=== PATIENT | female | born 1940 | race Caucasian/White ===

== ENCOUNTER 2018-05-31 16:51 | Inpatient (IN) | payer OTHER ==
[~2018-05-31] VITALS: Ht 139.7 cm; Wt 68.3 kg
[2018-05-31] MEDS ORDERED: ONDANSETRON 4 MG INJ IV STA (17:42)
[2018-05-31] MEDS ORDERED: morphine 4 MG/ML VIAL IV STA ×2 (17:42→19:50)
[2018-05-31] MEDS ORDERED: LOSA100T15 PO (18:16)
[2018-05-31] MEDS ORDERED: LEVO112T57 PO (18:17)
[2018-05-31] MEDS ORDERED: AMLO2.5T78 PO (18:17)
[2018-05-31] MEDS ORDERED: LOVA20TA PO (18:17)
[2018-05-31] MEDS ORDERED: ASPI-817 PO (18:18)
[2018-05-31] MEDS ORDERED: BIOT1TAB12 PO (18:20)
[2018-05-31] MEDS ORDERED: CYAN-23 PO (18:21)
[2018-05-31] MEDS ORDERED: ASC500 PO (18:21)
[2018-05-31] MEDS ORDERED: CHOL500010 PO (18:22)
[2018-05-31] MEDS ORDERED: METO-335 PO (18:25)
[2018-05-31] MEDS ORDERED: ISOS30TA67 PO (18:26)
[2018-05-31] MEDS ORDERED: LENA15CA2 PO (19:39)
--- NOTE | 2018-05-31 20:51 | ERD ---
ER Documentation Chief Complaint Chief Complaint LEFT HIP PAIN AFTER MECHANICAL FALL HPI 77-year-old female with a history of multiple myeloma on Revlimid presenting with left thigh pain, acute on onset. Per the patient, she was cleaning the bathroom when she slipped and try to hold onto the counter to prevent herself from falling. She denies falling. Her helped her onto the toilet and she was unable to get off the toilet after that. She denies twisting her like or falling on her leg. She complains of mild numbness in the left lower extremity. Her pain is severe, 10 out of 10, in the left thigh, radiating down her leg. No hip pain or back pain. Worse with movement. No alleviating factors. ROS All systems reviewed and are negative except as per history of present illness. Medications Home Meds Reported Medications Lenalidomide (Revlimid) 15 Mg Capsule, 15 MG PO QHS, CAP 05/31/18 Isosorbide Mononitrate* (Isosorbide Mononitrate*) 30 Mg Tab.er.24h, 30 MG PO DAILY, TAB 05/31/18 Metoprolol Succinate* (Toprol XL*) 25 Mg Tab.sr.24h, 37.5 MG PO DAILY, #30 TAB 05/31/18 Cholecalciferol (Vitamin D3) 5,000 Unit Tablet, 5000 UNIT PO DAILY, TAB 05/31/18 Cyanocobalamin (Vitamin B-12) (Vitamin B-12) 1,000 Mcg Capsule, 1000 MCG PO DAILY, CAP 05/31/18 Ascorbic Acid (Vitamin C) 500 Mg Tab, 500 MG PO DAILY, TAB 05/31/18 Biotin/Keratin (Biotin Plus Keratin Tablet) 1 Each Tablet, 1 EACH PO DAILY, TAB 05/31/18 Aspirin* (Aspirin* EC) 81 Mg Tablet.dr, 81 MG PO DAILY, TAB 05/31/18 Lovastatin* (Lovastatin*) 20 Mg Tablet, 20 MG PO HS, TAB 05/31/18 Levothyroxine Sodium* (Levothyroxine Sodium*) 112 Mcg Tablet, 112 MCG PO BEFORE BREAKFAST, #30 TAB 05/31/18 Amlodipine Besylate* (Amlodipine Besylate*) 2.5 Mg Tablet, 2.5 MG PO DAILY, #30 TAB 05/31/18 Losartan Potassium* (Losartan Potassium*) 100 Mg Tablet, 100 MG PO DAILY, TAB 05/31/18 Allergies Allergies: Coded Allergies: No Known Allergy (Unverified , 05/31/18) PMhx/Soc Hx Cardiac Disorders: Yes (Hypertension) Hx Miscellaneous Medical Probl: Yes (Hypothyroid, multiple myeloma) Hx Alcohol Use: No Hx Substance Use: No Hx Tobacco Use: No Smoking Status: Never smoker FmHx Family History: No diabetes Physical Exam Vitals Vital Signs Date Temp Pulse Resp B/P (MAP) Pulse Ox O2 O2 Flow FiO2 Time Delivery Rate 05/31/18 98.6 75 18 161/71 99 17:30 (101) Physical Exam Const: Nontoxic, in mild distress due to pain Head: Atraumatic Eyes: Normal Conjunctiva ENT: Normal External Ears, Nose and Mouth. Neck: Full range of motion. No meningismus. Resp: Clear to auscultation bilaterally Cardio: Regular rate and rhythm, no murmurs Abd: Soft, non tender, non distended. Normal bowel sounds Skin: No petechiae or rashes Back: No midline or flank tenderness Ext: No cyanosis, or edema. Left lower extremity exam shows a left thigh swelling with no ecchymosis. There is tenderness to palpation of the thigh. No hip tenderness bilaterally. Pelvis is stable. No deformities noted below the left thigh. 2+ DP and PT pulses. Sensations intact distally. Neur: Awake and alert, normal speech, no facial asymmetry, moving all extremities spontaneously. 5 out of 5 strength in all 4 extremities, only limited at the left hip and left knee secondary to pain. Psych: Normal Mood and Affect Result Diagram: 05/31/18212605/31/182126 Results 24 hrs Laboratory Tests Test 05/31/18 21:27 White Blood Count 3.4 10^3/ul Red Blood Count 2.87 10^6/ul Hemoglobin 8.7 g/dl Hematocrit 27.1 % Mean Corpuscular Volume 94.4 fl Mean Corpuscular Hemoglobin 30.3 pg Mean Corpuscular Hemoglobin Concent 32.1 g/dl Red Cell Distribution Width 16.6 % Platelet Count 192 10^3/UL Mean Platelet Volume 10.0 fl Immature Granulocytes % 0.600 % Neutrophils % % Segmented Neutrophils % (Manual) 39 % Band Neutrophils % (Manual) 7 % Lymphocytes % % Lymphocytes % (Manual) 31 % Monocytes % % Monocytes % (Manual) 20 % Eosinophils % % Eosinophils % (Manual) 2 % Basophils % % Basophils % (Manual) 1 % Nucleated Red Blood Cells % 0.0 /100WBC Immature Granulocytes # 0.020 10^3/ul Neutrophils # 10^3/ul Neutrophils # (Manual) 1.3 10^3/ul Band Neutrophils # 0.2 10^3/ul Lymphocytes (Manual) 1.0 10^3/ul Lymphocytes # 10^3/ul Monocytes # 10^3/ul Monocytes # (Manual) 0.6 10^3/ul Eosinophils # 10^3/ul Basophils # 10^3/ul Basophils # (Manual) 0.0 10^3/ul Nucleated Red Blood Cells # 10^3/ul Platelet Estimate NORMAL Giant Platelets 2 % Prothrombin Time 13.7 Sec Prothrombin Time Ratio 1.1 INR International Normalized Ratio 1.04 Activated Partial Thromboplast Time 26.3 Sec Urine Color YELLOW Urine Clarity CLEAR Urine pH 7.0 Urine Specific [place] 1.013 Urine Ketones NEGATIVE mg/dL Urine Nitrite NEGATIVE mg/dL Urine Bilirubin NEGATIVE mg/dL Urine Urobilinogen NEGATIVE mg/dL Urine Leukocyte Esterase NEGATIVE Francoise/ul Urine Hemoglobin NEGATIVE mg/dL Urine Glucose NEGATIVE mg/dL Urine Total Protein NEGATIVE mg/dl Sodium Level 139 mmol/L Potassium Level 4.5 mmol/L Chloride Level 104 mmol/L Carbon Dioxide Level 26 mmol/L Anion Gap 9 Blood Urea Nitrogen 28 mg/dl Creatinine 1.01 mg/dl Est Glomerular Filtrat Rate mL/min mL/min Glucose Level 116 mg/dl Calcium Level 8.8 mg/dl Total Bilirubin 0.2 mg/dl Direct Bilirubin 0.00 mg/dl Indirect Bilirubin 0.2 mg/dl Aspartate Amino Transf (AST/SGOT) 21 IU/L Alanine Aminotransferase (ALT/SGPT) 26 IU/L Alkaline Phosphatase 81 IU/L Total Protein 6.5 g/dl Albumin 3.8 g/dl Globulin 2.70 g/dl Albumin/Globulin Ratio 1.40 Current Medications Medications Dose Sig/Isabel Start Time Status Last (Trade) Ordered Route PRN Stop Time Admin Dose Reason Admin Morphine 4 mg ONCE STAT 05/31/18 DC 05/31/18 Sulfate IV 17:42 17:52 (morphine) 05/31/18 17:47 Ondansetron 4 mg ONCE STAT 05/31/18 DC 05/31/18 HCl (Zofran IV 17:42 17:52 Inj) 05/31/18 17:47 Morphine 4 mg ONCE STAT 05/31/18 DC 05/31/18 Sulfate IV 19:50 20:02 (morphine) 05/31/18 19:53 Morphine 4 mg Q4 PRN IV 05/31/18 Sulfate severe pain 23:00 (morphine) Procedures/MDM EMERGENT LABS AND DIAGNOSTIC STUDIES: Lab Results above were reviewed and interpreted by me. CBC: Mild leukopenia and anemia, likely secondary to chronic disease CMP: elevation of BUN and creatinine, consistent with acute renal insufficiency. no evidence of electrolyte abnormality,hypoglycemia, liver failure, or biliary obstruction UA: no evidence of infection 12-lead EKG was interpreted by Ashlyn Orozco MD: Normal Sinus Rhythm Normal axis Normal intervals No acute ST or T wave changes suggestive of acute ischemia or STEMI. Radiology Results as interpreted by Radiology below were reviewed by Marly Orozco MD: Left femur x-ray shows evidence of midshaft displaced transverse fracture Chest x-ray: Pending Initial Nursing notes reviewed. Previous Medical Records requested via the Electronic Health Record. EMERGENCY DEPARTMENT COURSE / MEDICAL DECISION MAKING: Patient is presenting with left thigh pain and x-ray that shows evidence of a displaced left femoral fracture. She is neurovascularly intact on exam. There is no evidence of lesion on x-ray but I do suspect this may be a pathologic fracture as she did not have any significant trauma. Patient's pain was controlled with morphine. She requested transfer to [facility], however I was unable to get her transferred there in time. Patient agr eed to stay at this hospital. I spoke with Dr. Ugarte with orthopedics, and he agreed to see the patient in the morning. Patient will be admitted to Dr. Coffey due to her insurance. Departure Diagnosis: Primary Impression: Left femoral shaft fracture Encounter type: initial encounter Fracture type: closed Fracture morphology: transverse Fracture alignment: displaced Qualified Codes: S72.322A - Displaced transverse fracture of shaft of left femur, initial encounter for closed fracture Additional Impressions: Renal insufficiency Anemia Anemia type: unspecified type Qualified Codes: D64.9 - Anemia, unspecified Personal history of multiple myeloma Condition: FABIAN Davis MD May 31, 2018 20:51
[2018-05-31] MEDS ORDERED: morphine 4 MG/ML VIAL IV PRN (23:00)
[2018-06-01] VITALS (12 sets, daily range): BP systolic 119–166; BP diastolic 58–79; PULSE 62–78; RESP 18–20; Ht 139.7 cm; Wt 68.3 kg
[2018-06-01] MEDS ORDERED: morphine 4 MG/ML VIAL IV STA (01:40)
[2018-06-01] MEDS ORDERED: NACL 0.9% 3 ML SYG IV SCH (02:00)
[2018-06-01] MEDS ORDERED: DOCUSATE SODIUM 100 MG CAP PO PRN (02:00)
[2018-06-01] MEDS ORDERED: ONDANSETRON 4 MG TAB PO PRN (02:00)
[2018-06-01] MEDS: HYDROCODONE/APAP (5/325) TAB PO PRN ×2 (02:04→02:11)
[2018-06-01] MEDS: D5W-0.45 NACL + KCL 20 MEQ 1,000 ML IV SCH ×2 (04:20→15:08)
[2018-06-01] MEDS: FAMOTIDINE 20 MG TAB PO SCH (04:23)
[2018-06-01] MEDS: HEPARIN 5,000 UNIT/1 ML VIAL SC SCH ×3 (04:31→21:00)
[2018-06-01] MEDS ORDERED: LEVOTHYROXINE 112 MCG TAB ONE (05:56)
[2018-06-01] MEDS: LEVOTHYROXINE 112 MCG TAB PO SCH (07:03)
[2018-06-01] MEDS: AMLODIPINE 2.5 MG TAB PO SCH (09:03)
[2018-06-01] MEDS: ASCORBIC ACID 500 MG TAB PO SCH (09:03)
[2018-06-01] MEDS: CHOLECALCIFEROL 1,000 UNIT TAB PO SCH (09:03)
[2018-06-01] MEDS: LOSARTAN 50 MG TAB PO SCH (09:04)
--- NOTE | 2018-06-01 10:07 | HP ---
Date/Time of Note Date/Time of Note DATE: 06/01/18 TIME: 10:05 Assessment/Plan VTE Prophylaxis SCD applied (from Nsg): Yes Pharmacological prophylaxis: NA/contraindicated (anticipating surgery) Pharm contraindication: surgical contra Lines/Catheters IV Catheter Type (from Nrsg): Saline Lock Urinary Cath still in place: No Assessment/Plan Assessment/Plan 1. 77yo woman with known multiple myeloma on Revlimid who appears to have suffered a mid-femur fracture on the left with only very minor trauma. Though no tumor lesion is evident on plain x-rays, there is high suspicion for pathologic fracture. She had previous pain in the left lateral thigh area. 2. Recent cardiac workup for dyspnea, records not available 3. Multiple previous surgeries with no anesthesia complications Plan: * Dr. Ugarte consulted for Orthopedics * Patient NPO for possible surgery * MRI planned to evaluate fracture site * Will undertake clearance from a cardiovascular standpoint by obtaining her [facility] records today * SCDs for DVT prophylaxis for now * Famotidine for GI protection * IV morphine for pain control * Patient is full-code * Disposition will be to a skilled facility when she is stable post-operatively With my thanks, Elier Coffey MD PhD [facility] [phone] Result Diagram: 06/01/18 0532 06/01/18 0532 Results 24hrs Laboratory Tests Test 05/31/18 21:27 06/01/18 05:32 White Blood Count 3.4 L 2.6 #L Red Blood Count 2.87 L 2.94 L Hemoglobin 8.7 L 8.8 L Hematocrit 27.1 L 27.9 L Mean Corpuscular Volume 94.4 94.9 Mean Corpuscular Hemoglobin 30.3 29.9 Mean Corpuscular Hemoglobin Concent 32.1 31.5 L Red Cell Distribution Width 16.6 H 16.7 H Platelet Count 192 204 Mean Platelet Volume 10.0 11.3 H Immature Granulocytes % 0.600 H 0.000 L Neutrophils % 32.2 L Segmented Neutrophils % (Manual) 39 Band Neutrophils % (Manual) 7 H Lymphocytes % 27.9 Lymphocytes % (Manual) 31 Monocytes % 29.8 H Monocytes % (Manual) 20 H Eosinophils % 9.7 H Eosinophils % (Manual) 2 Basophils % 0.4 Basophils % (Manual) 1 Nucleated Red Blood Cells % 0.0 0.0 Immature Granulocytes # 0.020 0.000 Neutrophils # 0.8 L Neutrophils # (Manual) 1.3 L Band Neutrophils # 0.2 Lymphocytes (Manual) 1.0 Lymphocytes # 0.7 L Monocytes # 0.8 Monocytes # (Manual) 0.6 Eosinophils # 0.3 Basophils # 0.0 Basophils # (Manual) 0.0 Nucleated Red Blood Cells # 0.0 Platelet Estimate NORMAL Giant Platelets 2 H Prothrombin Time 13.7 Prothrombin Time Ratio 1.1 INR International Normalized Ratio 1.04 Activated Partial Thromboplast Time 26.3 Urine Color YELLOW Urine Clarity CLEAR Urine pH 7.0 Urine Specific [place] 1.013 Urine Ketones NEGATIVE Urine Nitrite NEGATIVE Urine Bilirubin NEGATIVE Urine Urobilinogen NEGATIVE Urine Leukocyte Esterase NEGATIVE Urine Hemoglobin NEGATIVE Urine Glucose NEGATIVE Urine Total Protein NEGATIVE Sodium Level 139 140 Potassium Level 4.5 4.9 Chloride Level 104 103 Carbon Dioxide Level 26 28 Anion Gap 9 9 Blood Urea Nitrogen 28 H 28 H Creatinine 1.01 H 0.97 Est Glomerular Filtrat Rate mL/min Glucose Level 116 112 Calcium Level 8.8 8.9 Total Bilirubin 0.2 Direct Bilirubin 0.00 Indirect Bilirubin 0.2 Aspartate Amino Transf (AST/SGOT) 21 Alanine Aminotransferase (ALT/SGPT) 26 Alkaline Phosphatase 81 Total Protein 6.5 Albumin 3.8 Globulin 2.70 Albumin/Globulin Ratio 1.40 Hemoglobin A1c 5.2 Magnesium Level 2.0 Creatine Kinase 466 H Creatine Kinase Index 0.2 Creatinine Kinase MB (Mass) 1.09 Troponin I < 0.012 Thyroid Stimulating Hormone (TSH) 0.742 HPI/ROS Admit Date/Time Admit Date/Time Jun 01, 2018 at 01:43 Hx of Present Illness [facility] INTERNAL MEDICINE HISTORY & PHYSICAL EXAM Called last night from the [facility] ER to evaluate this 77-year-old woman under treatment currently for multiple myeloma. I spoke with her and her , Wiliam, in Room 622. She slipped in her bathroom, but caught herself before falling. Nonetheless, she had severe immediate pain in the left leg and was not able to get up unaided after sitting down on the toilet. She was found to have a displaced mid-femur fracture in the ER. She was diagnosed incidentally with myeloma (MGUS?) during a hospitalization in 2008 for thyroidectomy. No treatment for seven years until 2016. Under care of Dr. Jose Antonio Wills initially, and more recently Dr. Ricihe Miles. Last appointment was 05/15/18. She was treated in August 2017 with an immune modulator drug, "one pill," and subsequently had severe nause and emesis for six weeks, with a 55# weight loss. No recent infections, but was hospitalized in August 2017 for pneumonia and urinary tract infection. Followed by a neurologist for peripheral neuropathy in hands and feet. She underwent a cardiac evaluation at [facility] earlier this month, with nuclear stress test, echocardiogram last week, and angiogram. She did not know the results. Medical history: 1. Bilateral breast lumpectomy 2. (40yo daughter Jennifer is in good health) 3. D&C 4. Thyroidectomy 5. Back surgery 6. Knee surgery 7. Cholecystectomy 8. No known drug allergies No family history of rheumatoid arthritis, Crohns or other colitis, psoriasis, lupus, or thyroid disorders. ROS On review of systems, she has been free of fever, chills, eye pain or redness, dysphagia, nausea, emesis, abdominal pain, change in bowel habitus, epistaxis or other bleeding, dyspnea, cough, pleuritic or other chest pain, dysuria or urethritis symptoms, new rash. She has some loose stooling associated with her Revlimid therapy. PMH/Family/Social Past Medical History Medical History: coronary artery disease, urinary tract infection Medications Current Medications Morphine Sulfate (morphine) 4 mg Q4 PRN IV severe pain Last administered on 06/01/18at 05:49; Admin Dose 4 MG; Start 05/31/18 at 23:00 Amlodipine Besylate (Norvasc) 2.5 mg DAILY PO Last administered on 06/01/18at 09:03; Admin Dose 2.5 MG; Start 06/01/18 at 09:00 Ascorbic Acid (Vitamin C) 500 mg DAILY PO Last administered on 06/01/18at 09:03; Admin Dose 500 MG; Start 06/01/18 at 09:00 Cholecalciferol (Vitamin D) 5,000 unit DAILY PO Last administered on 06/01/18at 09:03; Admin Dose 5,000 UNIT; Start 06/01/18 at 09:00 Isosorbide Mononitrate (Imdur) 30 mg DAILY PO ; Start 06/01/18 at 09:00 Levothyroxine Sodium (Synthroid) 112 mcg BEFORE BREAKFAST PO Last administered on 06/01/18at 07:03; Admin Dose 112 MCG; Start 06/01/18 at 07:00 Losartan Potassium (Cozaar) 100 mg DAILY PO Last administered on 06/01/18at 09:04; Admin Dose 100 MG; Start 06/01/18 at 09:00 Metoprolol Succinate (Toprol Xl) 37.5 mg DAILY PO ; Start 06/01/18 at 09:00 Miscellaneous Information 15 mg QHS PO ; Start 06/01/18 at 21:00; Status UNV Miscellaneous Information 20 mg HS PO ; Start 06/01/18 at 21:00; Status UNV Potassium Chloride/Dextrose/ Sod Cl 1,000 ml @ 75 mls/hr [id number] IV Last administered on 06/01/18at 04:20; Admin Dose 75 MLS/HR; Start 06/01/18 at 01:35 IV Flush (NS 3 ml) 3 ml PER PROTOCOL IV ; Start 06/01/18 at 02:00 Ondansetron HCl (Zofran Tab) 4 mg Q6H PRN PO NAUSEA/VOMITING; Start 06/01/18 at 02:00 Acetaminophen/ Hydrocodone Bitart ([place] (5/325)) 1 tab Q6H PRN PO .PAIN 4-6 Last administered on 06/01/18at 02:11; Admin Dose 1 TAB; Start 06/01/18 at 02:00 Morphine Sulfate (morphine) 2 mg Q4H PRN IV .PAIN 7-10; Start 06/01/18 at 02:00 Docusate Sodium (Colace) 100 mg Q12H PRN PO .CONSTIPATION; Start 06/01/18 at 02:00 Famotidine (Pepcid) 20 mg DAILY PO Last administered on 06/01/18at 04:23; Admin Dose 20 MG; Start 06/01/18 at 02:00 Heparin Sodium (Porcine) (Heparin (5000 Units/1ml)) 5,000 unit Q12 SC Last administered on 06/01/18at 09:29; Admin Dose 5,000 UNIT; Start 06/01/18 at 02:00 Coded Allergies: No Known Allergy (Unverified , 05/31/18) Past Surgical History Past Surgical Hx: cholecystectomy, other (as above) Family History Significant Family History: cancer (Father with stomach cancer at age 85; brother has throat cancer; no FMH of leukemia, lymphoma, myeloma), other (Mother of tuberculosis in [place] at age 33) Social History She immigrated from [place]. Her daughter lives with her and her , who is a retired [employer] machinist 2nd shift. Alcohol Use: none Smoking Status: Never smoker Drug Use: none Exam/Review of Systems Vital Signs Vitals Vital Signs Date Temp Pulse Resp B/P (MAP) Pulse Ox O2 O2 Flow FiO2 Time Delivery Rate 06/01/18 67 08:14 06/01/18 98.2 19 136/59 91 07:21 (84) 06/01/18 Room Air 02:51 Intake and Output 05/31/18 05/31/18 06/01/18 1515:00 23:00 07:00 IntakeIntake Total 50 ml BalanceBalance 50 ml Exam Exam On physical exam, she was friendly, conversant, and mostly very comfortable- appearing HEENT: The pupils were equal, round and reactive to light. Her conjunctivae were non-inflamed. The oral mucosa was moist, intact and non-inflamed. She had no parotid or submandibular salivary gland swelling or tenderness, and no cervical adenopathy. The thyroid contour was normal with no nodularity. CVS: She had a regular rate and rhythm. No murmur or rub. She had symmetric radial and ulnar pulses, with normal capillary refill and no periungual erythema. Chest: The lungs were clear to auscultation bilaterally. No pulmonary rub. She had no tenderness of the vertebral bodies, paravertebral musculature, or sacroiliac joint region. Her sternoclavicular and acromioclavicular joints were non-tender with full range of motion. There was no axillary adenopathy, and no jayashree scoliosis. Abd: Soft, non-tender, bowel sounds normal. No hepatosplenomegaly. No masses palpated. She had no inguinal adenopathy. Musculoskeletal: She held the left hip in external rotation. Alignment appeared good. Hip motion was not tested, but she had full painless range of motion in all the other joints of the upper and lower extremities. She had no henri- articular tenderness around the hips, including the iliotibial bands, trochanteric bursa, the tensor fascia kayla and the gluteus medius area. But there was severe tenderness of the left anserine bursa. There were no abnormalities in the small joints of the hands and feet. Her neck demonstrated full painless motion in all three planes. Straight-leg raising was normal. Lumbar flexion/extension, lateral bending and twisting were all normal. Neuro: Alert and oriented. Cranial nerves 2-12 intact. Motor 5/5 in all muscle groups, including neck flexors. Sensation intact to light touch. Toes downgoing. Skin: No rash identified. TACHO COFFEY M.D. Jun 01, 2018 10:07
[2018-06-01] MEDS: ISOSORBIDE MONONITRATE(SR)30 MG TAB PO SCH (12:03)
[2018-06-01] MEDS: METOPROLOL (XL) 25 MG TAB PO SCH (12:05)
[2018-06-01] MEDS ORDERED: LENALIDOMIDE 15 MG PO SCH (21:00)
[2018-06-01] MEDS: ATORVASTATIN 10 MG TAB PO SCH (21:41)
[2018-06-01] MEDS: LORATADINE/PSEUDOEPHED (SR) TAB PO SCH (21:41)
[2018-06-02] VITALS (33 sets, daily range): BP systolic 82–162; BP diastolic 41–78; PULSE 60–80; RESP 10–28
[2018-06-02] MEDS: morphine 2 MG INJ IV PRN ×2 (02:12→11:19)
[2018-06-02] MEDS: D5W-0.45 NACL + KCL 20 MEQ 1,000 ML IV SCH ×2 (04:15→12:48)
[2018-06-02] MEDS: LEVOTHYROXINE 112 MCG TAB PO SCH (08:03)
[2018-06-02] MEDS: LOSARTAN 50 MG TAB PO SCH (08:35)
[2018-06-02] MEDS: LORATADINE/PSEUDOEPHED (SR) TAB PO SCH ×2 (08:36→21:00)
[2018-06-02] MEDS: AMLODIPINE 2.5 MG TAB PO SCH (08:36)
[2018-06-02] MEDS: METOPROLOL (XL) 25 MG TAB PO SCH (08:37)
[2018-06-02] MEDS: ISOSORBIDE MONONITRATE(SR)30 MG TAB PO SCH (08:37)
[2018-06-02] MEDS: FAMOTIDINE 20 MG TAB PO SCH (08:38)
[2018-06-02] MEDS: CHOLECALCIFEROL 1,000 UNIT TAB PO SCH (08:38)
[2018-06-02] MEDS: ASCORBIC ACID 500 MG TAB PO SCH (08:38)
[2018-06-02] MEDS: HEPARIN 5,000 UNIT/1 ML VIAL SC SCH ×2 (08:51→21:00)
[2018-06-02] MEDS ORDERED: POLYMYXIN/BACITRACIN 1L IRRIG ONE (13:17)
--- NOTE | 2018-06-02 13:33 | PREAC ---
Date/Time of Note Date/Time of Note DATE: 06/02/18 TIME: 13:31 Anesthesia Eval and Record Evaluation Time Pre-Procedure Interview DATE: 06/02/18 TIME: 13:31 Age 77 Sex female NPO: 8 hrs Preoperative diagnosis left femur fracture Planned procedure ORIF left femur fracture Past Medical History Past Medical History: Includes Cardio: HTN, Dyslipidemia Endo: Hypothyroid Heme: Anemia, Other (multiple myeloma) Surgery & Anesthesia Issues No known issue Meds Anticoagulation: No Beta Cody within 24 hr: No Reason Beta Cody not given: Pt. not on B-Cody Reported Medications Lenalidomide (Revlimid) 15 Mg Capsule, 15 MG PO QHS, CAP 05/31/18 Isosorbide Mononitrate* (Isosorbide Mononitrate*) 30 Mg Tab.er.24h, 30 MG PO DAILY, TAB 05/31/18 Metoprolol Succinate* (Toprol XL*) 25 Mg Tab.sr.24h, 37.5 MG PO DAILY, #30 TAB 05/31/18 Cholecalciferol (Vitamin D3) 5,000 Unit Tablet, 5000 UNIT PO DAILY, TAB 05/31/18 Cyanocobalamin (Vitamin B-12) (Vitamin B-12) 1,000 Mcg Capsule, 1000 MCG PO DAILY, CAP 05/31/18 Ascorbic Acid (Vitamin C) 500 Mg Tab, 500 MG PO DAILY, TAB 05/31/18 Biotin/Keratin (Biotin Plus Keratin Tablet) 1 Each Tablet, 1 EACH PO DAILY, TAB 05/31/18 Aspirin* (Aspirin* EC) 81 Mg Tablet.dr, 81 MG PO DAILY, TAB 05/31/18 Lovastatin* (Lovastatin*) 20 Mg Tablet, 20 MG PO HS, TAB 05/31/18 Levothyroxine Sodium* (Levothyroxine Sodium*) 112 Mcg Tablet, 112 MCG PO BEFORE BREAKFAST, #30 TAB 05/31/18 Amlodipine Besylate* (Amlodipine Besylate*) 2.5 Mg Tablet, 2.5 MG PO DAILY, #30 TAB 05/31/18 Losartan Potassium* (Losartan Potassium*) 100 Mg Tablet, 100 MG PO DAILY, TAB 05/31/18 Current Medications Morphine Sulfate (morphine) 4 mg Q4 PRN IV severe pain Last administered on 06/01/18at 05:49; Admin Dose 4 MG; Start 05/31/18 at 23:00 Amlodipine Besylate (Norvasc) 2.5 mg DAILY PO Last administered on 06/02/18 08:36; Admin Dose 2.5 MG; Start 06/01/18 at 09:00 Ascorbic Acid (Vitamin C) 500 mg DAILY PO Last administered on 06/02/18 08:38; Admin Dose 500 MG; Start 06/01/18 at 09:00 Cholecalciferol (Vitamin D) 5,000 unit DAILY PO Last administered on 06/02/18 08:38; Admin Dose 5,000 UNIT; Start 06/01/18 at 09:00 Isosorbide Mononitrate (Imdur) 30 mg DAILY PO Last administered on 06/02/18 08:37; Admin Dose 30 MG; Start 06/01/18 at 09:00 Levothyroxine Sodium (Synthroid) 112 mcg BEFORE BREAKFAST PO Last administered on 06/02/18 08:03; Admin Dose 112 MCG; Start 06/01/18 at 07:00 Losartan Potassium (Cozaar) 100 mg DAILY PO Last administered on 06/02/18 08:35; Admin Dose 100 MG; Start 06/01/18 at 09:00 Metoprolol Succinate (Toprol Xl) 37.5 mg DAILY PO Last administered on 06/02/18 08:37; Admin Dose 37.5 MG; Start 06/01/18 at 09:00 Miscellaneous Information 15 mg QHS PO ; Start 06/01/18 at 21:00; Status UNV Atorvastatin Calcium (Lipitor) 10 mg DAILY@21 PO Last administered on 06/01/18 21:41; Admin Dose 10 MG; Start 06/01/18 at 21:00 Potassium Chloride/Dextrose/ Sod Cl 1,000 ml @ 75 mls/hr [id number] IV Last administered on 06/02/18 12:48; Admin Dose 75 MLS/HR; Start 06/01/18 at 01:35 IV Flush (NS 3 ml) 3 ml PER PROTOCOL IV ; Start 06/01/18 at 02:00 Ondansetron HCl (Zofran Tab) 4 mg Q6H PRN PO NAUSEA/VOMITING; Start 06/01/18 at 02:00 Acetaminophen/ Hydrocodone Bitart ([place] (5/325)) 1 tab Q6H PRN PO .PAIN 4-6 Last administered on 06/01/18 02:11; Admin Dose 1 TAB; Start 06/01/18 at 02:00 Morphine Sulfate (morphine) 2 mg Q4H PRN IV .PAIN 7-10 Last administered on 06/02/18 11:19; Admin Dose 2 MG; Start 06/01/18 at 02:00 Docusate Sodium (Colace) 100 mg Q12H PRN PO .CONSTIPATION; Start 06/01/18 at 02:00 Famotidine (Pepcid) 20 mg DAILY PO Last administered on 06/02/18 08:38; Admin Dose 20 MG; Start 06/01/18 at 02:00 Heparin Sodium (Porcine) (Heparin (5000 Units/1ml)) 5,000 unit Q12 SC Last administered on 06/02/18 08:51; Admin Dose 5,000 UNIT; Start 06/01/18 at 02:00 Loratadine/ Pseudoephedrine Sulfate (Claritin-D 12 Hr) 1 tab Q12 PO Last administered on 06/02/18 08:36; Admin Dose 1 TAB; Start 06/01/18 at 21:00 Meds reviewed: Yes Allergies Coded Allergies: No Known Allergy (Unverified , 05/31/18) Allergies Reviewed: Yes Labs/Studies Labs Reviewed: Reviewed by anesthesiologist Result Diagram: 06/02/18 0746 06/01/18 0532 Laboratory Tests 06/02/18 07:46 Blood Bank Test 06/01/18 22:13 Antibody Screen NEGATIVE Blood Product Summary Counts Blood Type O POSITIVE Crossmatch Red Blood Cells test: N/A Studies: Other (cardiac cath) Pre-procedure Exam Last vitals Vital Signs Date Temp Pulse Resp B/P (MAP) Pulse Ox O2 O2 Flow FiO2 Time Delivery Rate 06/02/18 65 12:42 06/02/18 98.0 20 124/66 98 12:09 (85) 06/01/18 Room Air 02:51 Airway: Adequate mouth opening, Adequate thyromental dist Mallampati: Mallampati II Teeth: Normal Lung: Normal Heart: Normal ASA Physical Status ASA physical status: 3 Emergency: None Planned Anesthetic General/MAC: ETT (vs. ), LMA Neuraxial: Spinal Planned Pain Management Sub-arachniod narcotics, Parenteral pain med Pre-operative Attestations Prior to commencing anesthesia and surgery, the patient was re-evaluated, there was verification of: *The patient's identity *The results of appropriate recent lab work and preoperative vital signs *The above evaluation not changing prior to induction *Anesthetic plan, risk benefits, alternative and complications discussed with patient/family; questions answered; patient/family understands, accepts and wishes to proceed. NAYELI ACOSTA MD Jun 02, 2018 13:33
[2018-06-02] MEDS ORDERED: morphine SULFATE/PF (10 MG/10 ML) INJ ONE (13:54)
[2018-06-02] MEDS ORDERED: PROPOFOL 20 ML ONE (13:54)
[2018-06-02] MEDS ORDERED: FENTAnyl 50 MCG/ML VIAL ONE (13:54)
[2018-06-02] MEDS ORDERED: LIDOCAINE 2% (SDV) 5 ML INJ ONE (13:54)
[2018-06-02] MEDS ORDERED: EPHEDrine 50 MG INJ ONE (14:49)
[2018-06-02] MEDS ORDERED: SEVOFLURANE 15 MIN ONE (15:00)
[2018-06-02] MEDS ORDERED: FAMOTIDINE 20 MG INJ ONE (15:05)
[2018-06-02] MEDS ORDERED: ONDANSETRON 4 MG INJ ONE (15:05)
[2018-06-02] MEDS ORDERED: DEXAMETHASONE 4 MG/ML 5 ML INJ ONE (15:05)
[2018-06-02] MEDS ORDERED: CEFAZOLIN 1 GM INJ ONE (15:08)
[2018-06-02] MEDS ORDERED: VASOPRESSIN 20 UNITS INJ ONE (15:22)
[2018-06-02] MEDS ORDERED: HYDROmorphONE 1 MG/5 ML IV SYRINGE IV PRN ×3 (15:30)
[2018-06-02] MEDS ORDERED: FENTAnyl 50 MCG/ML VIAL IV PRN (15:30)
[2018-06-02] MEDS ORDERED: ONDANSETRON 4 MG INJ IV PRN ×2 (15:30→16:30)
[2018-06-02] MEDS ORDERED: DIPHENHYDRAMINE 50 MG INJ IV PRN ×2 (15:30→16:30)
[2018-06-02] MEDS ORDERED: PROCHLORPERAZINE 10 MG INJ IV PRN (15:30)
[2018-06-02] MEDS ORDERED: MEPERIDINE 25 MG INJ IV PRN (15:30)
[2018-06-02] MEDS: [UNRECOGNIZED DRUG - OTHER] XX SCH (16:00)
[2018-06-02] MEDS ORDERED: NALOXONE (0.4 MG/ML) INJ IV PRN (16:30)
[2018-06-02] MEDS ORDERED: KETOROLAC 15 MG INJ IV PRN (16:30)
[2018-06-02] MEDS ORDERED: HYDROmorphONE 0.5 MG/0.5 ML SYG IV PRN ×2 (16:30)
[2018-06-02] MEDS ORDERED: NALBUPHINE HCL (10 MG/1 ML) INJ IV PRN (16:30)
--- NOTE | 2018-06-02 17:10 | PN ---
Date/Time of Note Date/Time of Note DATE: 06/02/18 TIME: 17:07 Assessment/Plan VTE Prophylaxis Risk score (from Ns)>0 risk: 10 SCD applied (from Ns): Yes Pharmacological prophylaxis: NA/contraindicated (post-op) Pharm contraindication: surgical contra Lines/Catheters IV Catheter Type (from [facility]): Peripheral IV Urinary Cath still in place: No Assessment/Plan Assessment/Plan 1. 77yo woman with known multiple myeloma on Revlimid who appears to have suffered a mid-femur fracture on the left with only very minor stress. I discussed her case with Dr. Granados (radiology), who carefully reviewed yesterday's plain x-rays and MRI. He found no strick evidence of yesterday of tumor involvement-- but I think there remains a high suspicion for pathologic fracture. She had previous pain in the left lateral thigh area prior to this fracture. Patient is now post-op ORIF, surgeon was Dr. Kamaljit Ugarte. 2. [facility], with coronary angiogram and echo last summer that showed no atherosclerotic heart disease. 3. Multiple previous surgeries with no anesthesia complications 4. Ten-year history of multiple myeloma, now with moderate neutropenia that opens her to potential opportunistic infection. * Electrolyte management; labs tomorrow AM * Neutropenic precautions * Advance diet cautiously; ondansetron PRN for nausea * SCDs for DVT prophylaxis for now * Famotidine for GI protection * IV morphine for pain control * Patient is full-code * Await pathology from surgery * Disposition will be to a skilled facility when she is stable post-operatively With my thanks, Elier Coffey MD PhD [facility] [phone] Result Diagram: 06/02/18 0746 06/01/18 0532 Results 24hrs Laboratory Tests Test 06/02/18 07:46 White Blood Count 3.5 #L Red Blood Count 3.71 #L Hemoglobin 11.2 #L Hematocrit 34.8 #L Mean Corpuscular Volume 93.8 Mean Corpuscular Hemoglobin 30.2 Mean Corpuscular Hemoglobin Concent 32.2 Red Cell Distribution Width 16.1 H Platelet Count 193 Mean Platelet Volume 10.0 Immature Granulocytes % 0.300 Neutrophils % 30.2 L Lymphocytes % 30.3 Monocytes % 31.7 H Eosinophils % 6.6 Basophils % 0.9 Nucleated Red Blood Cells % 0.0 Immature Granulocytes # 0.010 Neutrophils # 1.1 L Lymphocytes # 1.1 Monocytes # 1.1 H Eosinophils # 0.2 Basophils # 0.0 Nucleated Red Blood Cells # 0.0 Subjective 24 Hr Interval Summary Free Text/Dictation Hospital day 2 for fracture of the left femur, now s/p open reduction and internal fixation by Dr. Ugarte. Exam/Review of Systems Exam Vitals Vital Signs Date Temp Pulse Resp B/P (MAP) Pulse Ox O2 O2 Flow FiO2 Time Delivery Rate 06/02/18 65 12:42 06/02/18 98.0 20 124/66 98 12:09 (85) 06/01/18 Room Air 02:51 Intake and Output 06/01/18 06/01/18 06/02/18 1515:00 23:00 07:00 IntakeIntake Total 900 ml 1225 ml BalanceBalance 900 ml 1225 ml Exam Patient was not available to examine from the she left the floor at 1330h until I left the hospital at 1815h. She was still in the OR at 1730h when I looked for her in the PACU. Results Results 24hrs Laboratory Tests Test 06/02/18 07:46 White Blood Count 3.5 #L Red Blood Count 3.71 #L Hemoglobin 11.2 #L Hematocrit 34.8 #L Mean Corpuscular Volume 93.8 Mean Corpuscular Hemoglobin 30.2 Mean Corpuscular Hemoglobin Concent 32.2 Red Cell Distribution Width 16.1 H Platelet Count 193 Mean Platelet Volume 10.0 Immature Granulocytes % 0.300 Neutrophils % 30.2 L Lymphocytes % 30.3 Monocytes % 31.7 H Eosinophils % 6.6 Basophils % 0.9 Nucleated Red Blood Cells % 0.0 Immature Granulocytes # 0.010 Neutrophils # 1.1 L Lymphocytes # 1.1 Monocytes # 1.1 H Eosinophils # 0.2 Basophils # 0.0 Nucleated Red Blood Cells # 0.0 Imaging Imaging PROCEDURE: MRI OF THE LEFT THIGH CLINICAL INDICATION: Femur fracture, fall at home. TECHNIQUE: Multiple MRI images were obtained utilizing multiple pulse sequences and all three planes. Images were interpreted on a high-resolution PACS system. COMPARISON: 05/31/2018 radiographs FINDINGS: There is motion artifact on all pulse sequences, slightly limiting evaluation. There is seen on the radiographs, there is a displaced transverse fracture of the proximal to mid left femoral diaphysis with mild bone marrow edema. There is overlap of the fracture fragments with about 2.4 cm medial and posterior displacement of the distal fracture fragment. There is no aggressive appearing bone lesion or bony destructive changes. There is diffuse moderate edema within the adjacent muscles around the visualized proximal left thigh including the adductor, quadriceps, and hamstring muscles. No drainable fluid collections are visualized. The subcutaneous soft tissues are unremarkable. The visualized sciatic nerve is unremarkable. There is mild joint space narrowing within the left hip with a small joint effusion. Evaluation of the hip joint is limited due to the large field of view imaging and motion artifact. There is no avascular necrosis, fracture, or stress reaction within the femoral head. There are degenerative changes of the pubic symphysis with osseous spurring. There is mild bilateral hamstring origin tendinosis with a low grade partial tear. RPTAT: AA IMPRESSION: 1. Displaced transverse fracture of the proximal to mid left femoral diaphysis with mild marrow edema, overlap of the fracture fragments, and about 2.4 cm m edial and posterior displacement of the distal fracture fragment. 2. Diffuse moderate edema within the muscles around the proximal to mid left thigh from the fracture but no drainable fluid collection. Medications Medication Current Medications Morphine Sulfate (morphine) 4 mg Q4 PRN IV severe pain Last administered on 06/01/18at 05:49; Admin Dose 4 MG; Start 05/31/18 at 23:00 Amlodipine Besylate (Norvasc) 2.5 mg DAILY PO Last administered on 06/02/18at 08:36; Admin Dose 2.5 MG; Start 06/01/18 at 09:00 Ascorbic Acid (Vitamin C) 500 mg DAILY PO Last administered on 06/02/18at 08:38; Admin Dose 500 MG; Start 06/01/18 at 09:00 Cholecalciferol (Vitamin D) 5,000 unit DAILY PO Last administered on 06/02/18 08:38; Admin Dose 5,000 UNIT; Start 06/01/18 at 09:00 Isosorbide Mononitrate (Imdur) 30 mg DAILY PO Last administered on 06/02/18at 08:37; Admin Dose 30 MG; Start 06/01/18 at 09:00 Levothyroxine Sodium (Synthroid) 112 mcg BEFORE BREAKFAST PO Last administered on 06/02/18 08:03; Admin Dose 112 MCG; Start 06/01/18 at 07:00 Losartan Potassium (Cozaar) 100 mg DAILY PO Last administered on 06/02/18 08:35; Admin Dose 100 MG; Start 06/01/18 at 09:00 Metoprolol Succinate (Toprol Xl) 37.5 mg DAILY PO Last administered on 06/02/18 at 08:37; Admin Dose 37.5 MG; Start 06/01/18 at 09:00 Miscellaneous Information 15 mg QHS PO ; Start 06/01/18 at 21:00; Status UNV Atorvastatin Calcium (Lipitor) 10 mg DAILY@21 PO Last administered on 06/01/18 21:41; Admin Dose 10 MG; Start 06/01/18 at 21:00 Potassium Chloride/Dextrose/ Sod Cl 1,000 ml @ 75 mls/hr [id number] IV Last administered on 06/02/18 12:48; Admin Dose 75 MLS/HR; Start 06/01/18 at 01:35 IV Flush (NS 3 ml) 3 ml PER PROTOCOL IV ; Start 06/01/18 at 02:00 Ondansetron HCl (Zofran Tab) 4 mg Q6H PRN PO NAUSEA/VOMITING; Start 06/01/18 at 02:00 Acetaminophen/ Hydrocodone Bitart (Lignum (5/325)) 1 tab Q6H PRN PO .PAIN 4-6 Last administered on 06/01/18 02:11; Admin Dose 1 TAB; Start 06/01/18 at 02:00 Morphine Sulfate (morphine) 2 mg Q4H PRN IV .PAIN 7-10 Last administered on 06/02/18 11:19; Admin Dose 2 MG; Start 06/01/18 at 02:00 Docusate Sodium (Colace) 100 mg Q12H PRN PO .CONSTIPATION; Start 06/01/18 at 02:00 Famotidine (Pepcid) 20 mg DAILY PO Last administered on 06/02/18 08:38; Admin Dose 20 MG; Start 06/01/18 at 02:00 Heparin Sodium (Porcine) (Heparin (5000 Units/1ml)) 5,000 unit Q12 SC Last administered on 06/02/18 08:51; Admin Dose 5,000 UNIT; Start 06/01/18 at 02:00 Loratadine/ Pseudoephedrine Sulfate (Claritin-D 12 Hr) 1 tab Q12 PO Last administered on 06/02/18at 08:36; Admin Dose 1 TAB; Start 06/01/18 at 21:00 Hydromorphone HCl (Dilaudid) 0.2 mg PACU PRN IV MILD PAIN 1-3; Start 06/02/18 at 15:30; Stop 06/02/18 at 20:00 Hydromorphone HCl (Dilaudid) 0.4 mg PACU PRN IV MOD PAIN 4-6; Start 06/02/18 at 15:30; Stop 06/02/18 at 20:00 Hydromorphone HCl (Dilaudid) 0.6 mg PACU PRN IV SEVERE PAIN 7-10; Start 06/02/18 at 15:30; Stop 06/02/18 at 20:00 Fentanyl (Sublimaze) 25 mcg PACU ORDER PRN IV MILD PAIN 1-3; Start 06/02/18 at 15:30; Stop 06/02/18 at 20:00 Ondansetron HCl (Zofran Inj) 4 mg PACU ORDER PRN IV NAUSEA/VOMITING; Start 06/02/18 at 15:30; Stop 06/02/18 at 20:00 Prochlorperazine (Compazine Inj) 5 mg PACU ORDER PRN IV NAUSEA/VOMITING; Start 06/02/18 at 15:30; Stop 06/02/18 at 20:00 Meperidine HCl (Demerol) 12.5 mg PACU ORDER PRN IV .RIGORS; Start 06/02/18 at 15:30; Stop 06/02/18 at 20:00 Diphenhydramine HCl (Benadryl) 12.5 mg PACU ORDER PRN IV .PRURITUS; Start 06/02/18 at 15:30; Stop 06/02/18 at 20:00 Miscellaneous Information (*Order Clarification Bulletin) REVELMID IS NON FORMULARY...PLEASE CONSIDER AN OR... Q8H XX ; Start 06/02/18 at 16:00 Hydromorphone HCl (Dilaudid) 0.2 mg Q2H PRN IV .PAIN 1-5; Start 06/02/18 at 16:30 Hydromorphone HCl (Dilaudid) 0.4 mg Q2H PRN IV .PAIN 6-10; Start 06/02/18 at 16:30 Ketorolac Tromethamine (Toradol) 15 mg Q6H PRN IV .PAIN 6-10; Start 06/02/18 at 16:30; Stop 06/05/18 at 16:29 Diphenhydramine HCl (Benadryl) 12.5 mg Q4H PRN IV .PRURITUS; Start 06/02/18 at 16:30 Nalbuphine HCl (Nubain) 2.5 mg Q4H PRN IV .PRURITUS; Start 06/02/18 at 16:30 Ondansetron HCl (Zofran Inj) 4 mg Q6H PRN IV .NAUSEA/VOMITING; Start 06/02/18 at 16:30 Naloxone HCl (Narcan) 0.2 mg Q2M PRN IV .RESP RATE; Start 06/02/18 at 16:30 Miscellaneous Information (* Miscellaneous Pharmacy Order) DURAMORPH: 0.2 MG SPI... GIVEN NEURAXIAL XX ; Start 06/02/18 at 16:30 TACHO COFFEY M.D. Jun 02, 2018 17:10
[2018-06-02] MEDS ORDERED: VANCOMYCIN 1 GM INJ ONE (18:40)
--- NOTE | 2018-06-02 19:18 | HPN ---
Date/Time of Note Date/Time of Note DATE: 06/02/18 TIME: 19:17 Interval H&P Admission Note Pt. seen H&P reviewed: No system changes FLORIDA LOREDO MD Jun 02, 2018 19:18
[2018-06-02] MEDS ORDERED: MIDAZOLAM 1 MG/ML 2 ML INJ IV PRN (19:30)
[2018-06-02] MEDS ORDERED: MIDAZOLAM 1 MG/ML 2 ML INJ ONE (19:44)
--- NOTE | 2018-06-02 19:47 | SIPON ---
Date/Time of Note Date/Time of Note DATE: 06/02/18 TIME: 19:33 Operative Report Preoperative Diagnosis fracture of shaft of left femur Postoperative Diagnosis same Operation/Procedure Performed O.R.I.F. of fracture of left femur Surgeon see signature line budget assistant none Anesthesia: general Estimated blood loss: 250 - 300 ml's Transfusion Required none Specimen none Grafts/Implants intramedullary becca and locking screws Complications none FLORIDA LOREDO MD Jun 02, 2018 19:44
--- NOTE | 2018-06-02 19:47 | PAC ---
Date/Time of Note Date/Time of Note DATE: 06/02/18 TIME: 19:47 Post-Anesthesia Notes Post-Anesthesia Note Last documented vital signs Vital Signs Date Temp Pulse Resp B/P (MAP) Pulse Ox O2 O2 Flow FiO2 Time Delivery Rate 06/02/18 98.4 19:45 06/02/18 65 12:42 06/02/18 20 124/66 98 12:09 (85) 06/01/18 Room Air 02:51 Activity: WNL Respiratory function: WNL Cardiovascular function: WNL Mental status: Baseline Pain reasonably controlled: Yes Hydration appropriate: Yes Nausea/Vomiting absent: Yes Comments BP: 105/60 HR: 76 RR: 15 T: 98.4 SaO2; 98% NAYELI ACOSTA MD Jun 02, 2018 19:47
[2018-06-02] MEDS ORDERED: NACL 0.9% 3 ML SYG IV SCH (20:00)
[2018-06-02] MEDS ORDERED: ALBUMIN HUMAN 5% 250 ML IV STA (20:37)
[2018-06-02] MEDS ORDERED: ALBUMIN HUMAN 5% 250 ML ONE (20:39)
[2018-06-02] MEDS ORDERED: HYDROmorphONE 1 MG/5 ML IV SYRINGE IV ONE (20:55)
[2018-06-02] MEDS: ATORVASTATIN 10 MG TAB PO SCH (21:00)
--- NOTE | 2018-06-02 21:07 | OPR ---
DATE OF OPERATION: 06/02/2018 PREOPERATIVE DIAGNOSIS: Femoral shaft fracture of the left femur. POSTOPERATIVE DIAGNOSIS: Femoral shaft fracture of the left femur. PROCEDURE PERFORMED: Open reduction and internal fixation of the femoral shaft fracture of the left femur utilizing intramedullary nailing technique. ANESTHESIA: General anesthesia. SURGEON: Kade Loredo MD PROCEDURE AND FINDINGS: Under general anesthesia, the patient was placed in supine position upon the fracture table. Utilizing fracture table and under fluoroscopic monitoring, preliminary manipulativ e reduction of the left femur was carried out until an acceptable alignment could be achieved. Usual prep and drape was done exposing the left hip and left lower extremity. The longitudinal incision over the lateral aspect of the left hip, the tip of the greater trochanter was identified and through this tip, intramedullary canal was entered with the guide drill. After co nfirming satisfactory alignment of the guide drill, opening was enlarged with the cannulated drill an d then a reamer guide was introduced into the intramedullary canal and threaded down to the distal se gment. The measurement at this time revealed that the proper length of the intramedullary becca should be 32 cm. After reaming up to 11.5 mm, selected intramedullary becca was inserted. After proper adju stment, the entire system was stabilized by inserting proximal and distal locking screw. There was s ome problem with the proximal locking screw solution. However, this was properly corrected and proper proximal locking screw was placed. After irrigation and hemostasis, closure of the incision was carried out using 0 Vicryl for muscle an d fascia and 2-0 Vicryl for subcutaneous tissues. Final skin closure was carried out with skin stapl es. The patient tolerated the entire procedure very well and was sent to the recovery room in good c ondition. Dictated By: KADE LOREDO MD IK/NTS Conf#: [id number] DID#: [id number]
[2018-06-02] MEDS ORDERED: LORAZEPAM 2 MG INJ IV ONE (22:30)
[2018-06-02] MEDS: SOD CHLORIDE 0.9% 1,000 ML IV SCH (22:30)
[2018-06-02] MEDS: CEFAZOLIN 1 GM/50 ML (PMX) 50 ML IVPB SCH (23:01)
[2018-06-03] VITALS (8 sets, daily range): BP systolic 95–132; BP diastolic 51–62; PULSE 63–87; RESP 16–22
[2018-06-03] MEDS ORDERED: LORAZEPAM 2 MG INJ IV ONE (03:00)
[2018-06-03] MEDS: CEFAZOLIN 1 GM/50 ML (PMX) 50 ML IVPB SCH ×2 (04:47→12:09)
[2018-06-03] MEDS: SOD CHLORIDE 0.9% 1,000 ML IV SCH ×2 (05:47→15:47)
[2018-06-03] MEDS: LEVOTHYROXINE 112 MCG TAB PO SCH (06:16)
[2018-06-03] MEDS: [UNRECOGNIZED DRUG - OTHER] XX SCH ×3 (08:00→16:00)
[2018-06-03] MEDS ORDERED: HYDR-3601 PO (08:42)
[2018-06-03] MEDS ORDERED: HEPA50002 SC (08:42)
[2018-06-03] MEDS ORDERED: FAMO20TA18 PO (08:42)
[2018-06-03] MEDS ORDERED: DOCU-144 PO (08:42)
--- NOTE | 2018-06-03 08:43 | PDOCDIS ---
Discharge Instructions CONDITION [id number] Patient Condition: [id number] Good HOME CARE INSTRUCTIONS: [id number] Diet Instructions: [id number] FOLLOW UP/APPOINTMENTS Follow-up Plan pcp [address] Ugarte 2 weeks MILKA VALIENTE MD Jun 03, 2018 08:43
[2018-06-03] MEDS: LORATADINE/PSEUDOEPHED (SR) TAB PO SCH (08:49)
[2018-06-03] MEDS: FAMOTIDINE 20 MG TAB PO SCH (08:50)
[2018-06-03] MEDS: CHOLECALCIFEROL 1,000 UNIT TAB PO SCH (08:50)
[2018-06-03] MEDS: METOPROLOL (XL) 25 MG TAB PO SCH (08:51)
[2018-06-03] MEDS: ISOSORBIDE MONONITRATE(SR)30 MG TAB PO SCH (08:51)
[2018-06-03] MEDS: ASCORBIC ACID 500 MG TAB PO SCH (08:52)
[2018-06-03] MEDS: AMLODIPINE 2.5 MG TAB PO SCH (08:52)
[2018-06-03] MEDS: LOSARTAN 50 MG TAB PO SCH (08:53)
[2018-06-03] MEDS ORDERED: ENOXAPARIN 40 MG/0.4 ML SYG SC SCH (09:00)
[2018-06-03] MEDS ORDERED: HALOPERIDOL 5 MG INJ IV PRN (09:00)
[2018-06-03] MEDS: HEPARIN 5,000 UNIT/1 ML VIAL SC SCH (09:02)
--- NOTE | 2018-06-03 09:21 | DS ---
DATE OF ADMISSION: 06/01/2018 DATE OF DISCHARGE: DISCHARGE DIAGNOSES: 1. Acute mid femur fracture following a minor trauma. 2. Status post left femur ORIF with intramedullary becca placement. 3. Multiple myeloma. HOSPITAL COURSE: A 77-year-old female with known history of multiple myeloma who suffered a mid femu r fracture on the left side following a minor trauma. This is highly suspicious for pathologic fract ure. The patient was seen in consultation by Dr. Ugarte. She was taken to the OR and underwent ORIF wi th intramedullary becca placement. There were no complications. Her hemoglobin prior to surgery was 8 .8. She received 2 units of packed RBC. Repeat hemoglobin was 11.2. Postop hemoglobin was 7.8. He r basic metabolic panel was within normal limits. The patient was somewhat confused and required sof t restraints during the hospitalization. She was alert and oriented to place at the time of my visit . Plan of care was discussed with her at the bedside. She is in a stable condition for gonzalez sition to alf facility. I will confirm her weightbearing status with Dr. Ugarte. The case [email or web address] [email or web address] was notified of the discharge planning. MEDICATIONS ON DISCHARGE: 1. Amlodipine 2.5 mg daily. 2. Aspirin 81 mg daily. 3. Isosorbide mononitrate 30 mg daily. 4. Revlimid 15 mg at bedtime. 5. Levothyroxine 112 mcg daily. 6. Losartan 100 mg daily. 7. Lovastatin 20 mg each day at bedtime. 8. Metoprolol 37.5 mg daily. 9. Continue physical therapy. 10. Follow up with Dr. Ugarte in 2 weeks. 11. Follow up with PCP in 2 weeks. Dictated By: MILKA ESCOBAR/NTS Conf#: [id number] DID#: [id number] CC: KADE UGARTE MD; TACHO LUIS MD;*EndCC*
[2018-06-03] MEDS ORDERED: HYDROCODONE/APAP (5/325) TAB PO PRN (14:27)
[2018-06-03] MEDS ORDERED: morphine 4 MG/ML VIAL IV PRN (14:27)
--- NOTE | 2018-06-04 06:37 | PN ---
DATE: 06/03/2018 First postop day stable vital signs. Postop x-ray shows satisfactory alignment of the fracture with proper position of the fixation device. H and H is 7.8/24.8. She may need a transfusion. No signs of neurovascular compromise. Okay to be transferred to assisted facility from orthopedics' po int. To be seen in my office in 2 weeks with repeated x-rays. Dictated By: KADE LOREDO MD IK/NTS Conf#: [id number] DID#: [id number] CC: TACHO LUIS MD;*EndCC*
== END 2018-06-03 18:10 | DRG 481 ==
LOC: E/R 16:51 → 6WM 06-01 01:43
PROVIDERS: ADMIT Internal Medicine; ATTEND Internal Medicine
PROC: 30233N1 Transfusion of Nonautologous Red Blood Cells into Peripheral Vein, Percutaneous Approach (ICD-10-PCS; 2018-06-02)
PROC: 0QS706Z Reposition Left Upper Femur with Intramedullary Internal Fixation Device, Open Approach (ICD-10-PCS; principal; 2018-06-02 13:30)
DX: M84.452A Pathological fracture, left femur, initial encounter for fracture (principal); C90.00 Multiple myeloma not having achieved remission; E03.9 Hypothyroidism, unspecified; I10 Essential (primary) hypertension; I25.10 Atherosclerotic heart disease of native coronary artery without angina pectoris; E78.5 Hyperlipidemia, unspecified; D64.9 Anemia, unspecified; R41.0 Disorientation, unspecified; Z78.1 Physical restraint status
CPT/HCPCS: 36415; 36430; 71045; 73510; 73550; 73720; 80048; 80053; 81003; 82550; 82553; 83036; 83735; 84443; 84484; 85025; 85610; 85730; 86850; 86900; 86901; 86920; 87086; 93005; 96374; 96375; 96376; 97110; 97162; 97530; C1713; J0690; J1100; J1170; J1200; J1644; J2060; J2250; J2270; J2274; J2405; J3010; J3370; J3480; J7030; P9016; P9045